=== PATIENT | female | born 1985 | race Caucasian/White ===

== ENCOUNTER 2022-08-07 21:48 | Emergency (ER) | payer MEDICAID ==
[~2022-08-07] VITALS: Ht 149.9 cm; Wt 51.3 kg
[2022-08-07] MEDS ORDERED: IBUPROFEN 600MG TABLET PO STA (22:40)
[2022-08-07 22:51] LABS: CLARITY URINE CLOUDY (CLEAR); COLOR URINE YELLOW (YELLOW); KETONES URINE 1+ (NEGATIVE); LEUKOCYTE ESTERASE URINE TRACE (NEGATIVE); NITRITE URINE NEGATIVE (NEGATIVE); OCCULT BLOOD URINE 3+ (NEGATIVE); PH URINE 5.5 (4.5-8.0); PROTEIN URINE 2+ (NEGATIVE); SPECIFIC GRAVITY URINE 1.033 (1.005-1.030)
[2022-08-08] MEDS ORDERED: NAPR-681 PO (00:14)
[2022-08-08] MEDS ORDERED: ONDA4TAB50 PO (00:14)
[2022-08-08] MEDS ORDERED: CEPH500C2 PO (00:14)
[2022-08-08 00:49] VITALS: BP 102/68
== END 2022-08-08 00:49 | disposition home or self-care (01) ==
LOC: ER 21:48
DX: J02.9 Acute pharyngitis, unspecified (principal); N39.0 Urinary tract infection, site not specified; Z20.822 Contact with and (suspected) exposure to COVID-19
CPT/HCPCS: 71045; 81003; 81025; 87070; 87426; 87430; 99284; C9803

== ENCOUNTER 2023-04-27 16:15 | Emergency (ER) | payer MEDICAID ==
[~2023-04-27] VITALS: Ht 160 cm; Wt 58.0 kg
[~2023-04-27 16:15] MED LIST: CEPH500C2 PO; NAPR-681 PO; ONDA4TAB50 PO
[2023-04-27 16:42] VITALS: BP 119/75; PULSE 86; RESP 20; TEMP 98.1; O2SAT 99
[2023-04-27] MEDS ORDERED: HYDR-4001 MT (20:54)
[2023-04-27] MEDS ORDERED: IBUP-1523 MT (20:54)
[2023-04-27] MEDS ORDERED: AMOX-494 MT (20:54)
== END 2023-04-27 22:41 | disposition home or self-care (01) ==
LOC: ER 16:15
DX: K01.1 Impacted teeth (principal); K05.10 Chronic gingivitis, plaque induced; Z79.899 Other long term (current) drug therapy
CPT/HCPCS: 99281

== ENCOUNTER 2023-12-28 20:01 | Emergency (ER) | payer BC, MEDICAID ==
[~2023-12-28] VITALS: Ht 152.4 cm; Wt 52.0 kg
[~2023-12-28 20:01] MED LIST changes: +AMOX-494 MT; +HYDR-4001 MT; +IBUP-1523 MT
[2023-12-28 20:06] VITALS: O2SAT 100
[2023-12-28 20:47] VITALS: BP 100/60; PULSE 80; RESP 16; O2SAT 100
[2023-12-28 23:49] VITALS: TEMP 98.4
[2023-12-28] MEDS: ACETAMINOPHEN 325MG TABLET PO NR (23:49)
== END 2023-12-29 03:52 | disposition home or self-care (01) ==
LOC: ER 20:01
DX: N64.4 Mastodynia (principal); Z79.899 Other long term (current) drug therapy
CPT/HCPCS: 76642; 99284